=== PATIENT | male | born 2000 | race Two or more races ===

== ENCOUNTER 2020-07-27 21:15 | Emergency (ER) | payer OTHER ==
[2020-07-27] MEDS ORDERED: IBUPROFEN 600 MG TABLET PO ONE (22:05)
[2020-07-27 22:45] LABS: A TYPE INFLUENZA AG NEGATIVE (NEGATIVE); B INFLUENZA AG NEGATIVE (NEGATIVE)
--- NOTE | 2020-07-27 22:45 | ER Document Report ---
ED ENT - General Chief Complaint: Sore Throat Stated Complaint: SLIGHT SORE THROAT, WEAKNESS, FATIQUE Time Seen by Provider: 07/27/20 22:04 Mode of Arrival: Ambulatory Information source: Patient Notes: 20-year-old male with no previous medical problems presents to the emergency room complaining of generalized fatigue, headache, and sore throat for the past 2 days. States he started with a fever today of 100.8. Has been taking Tylenol with some relief. States he did not take any Tylenol today. Describes the headache as generalized and aching. Denies any history of migraines. Denies any head trauma head injury. Denies any sudden thunderclap. Denies worst headache of his life. He denies any nausea, vomiting, no abdominal pain, no diarrhea, no COVID-19 exposure. Known ill contacts. States is eating and drinking but is painful to swallow. TRAVEL OUTSIDE OF THE [place] IN LAST 30 DAYS: No - Related Data Allergies/Adverse Reactions: No Known Allergies Allergy (Verified 07/27/20 22:19) Past Medical History - General Information source: Patient - Social History Smoking Status: Never Smoker Frequency of alcohol use: Occasional Drug Abuse: None Family History: Reviewed & Not Pertinent Patient has homicidal ideation: No Review of Systems - Review of Systems Constitutional: Fever, Malaise EENT: Throat pain Cardiovascular: No symptoms reported Respiratory: No symptoms reported Gastrointestinal: No symptoms reported Musculoskeletal: No symptoms reported Skin: No symptoms reported Neurological/Psychological: Headaches -: Yes All other systems reviewed and negative Physical Exam - Vital signs Vitals: Temp Pulse Resp BP Pulse Ox 99.9 F 115 H 20 133/81 H 98 07/27/20 21:25 07/27/20 21:25 07/27/20 21:25 07/27/20 21:25 07/27/20 21:25 - General General appearance: Appears well, Alert In distress: Mild - HEENT Head: Normocephalic, Atraumatic Eyes: Normal Pupils: PERRL External canal: Normal Tympanic membrane: Normal Sinus: Normal Nasal: Normal Pharynx: Normal Neck: Normal. No: Kernig's, Lymphadenopathy, Meningismus - Respiratory Respiratory status: No respiratory distress Chest status: Nontender Breath sounds: Normal Chest palpation: Normal - Cardiovascular Rhythm: Tachycardia Heart sounds: Normal auscultation Murmur: No - Extremities General upper extremity: Normal inspection, Nontender, Normal color, Normal ROM, Normal temperature General lower extremity: Normal inspection, Nontender, Normal color, Normal ROM, Normal temperature, Normal weight bearing. No: Ramez's sign - Neurological Neuro grossly intact: Yes Cognition: Normal Orientation: AAOx4 [place] Coma Scale Eye Opening: Spontaneous [place] Coma Scale Verbal: Oriented [place] Coma Scale Motor: Obeys Commands [place] Coma Scale Total: 15 Speech: Normal Motor strength normal: LUE, RUE, LLE, RLE Sensory: Normal - Skin Skin Temperature: Warm Skin Moisture: Dry Skin Color: Normal Course - Re-evaluation Re-evalutation: 07/27/20 22:48 Patient is resting comfortably with decreased pain. States his headache has resolved. Vital signs are stable. Reviewed negative flu and negative strep with patient. Aware that if throat culture comes back with any bacteria that needs to be treated he will be notified. He was counseled to push fluids, continue with Tylenol and or Motrin as needed for fevers and pain. Outpatient follow-up primary care physician if not improving in 2 to 3 days. Patient was given strict return to the emergency room guidelines. Return for any new or worsening symptoms. All questions were answered. Patient verbalized understanding and agrees with plan of care. 07/27/20 22:52 - Vital Signs Vital signs: Temp Pulse Resp BP Pulse Ox 99.9 F 115 H 20 133/81 H 98 07/27/20 21:25 07/27/20 21:25 07/27/20 21:25 07/27/20 21:25 07/27/20 21:25 Discharge - Discharge Clinical Impression: Viral illness Headache Qualifiers: Headache type: other headache syndrome Qualified Code(s): G44.89 - Other headache syndrome Acute pharyngitis Qualifiers: Pharyngitis/tonsillitis etiology: unspecified etiology Qualified Code(s): J02.9 - Acute pharyngitis, unspecified Fever Qualifiers: Fever type: unspecified Qualified Code(s): R50.9 - Fever, unspecified Condition: Stable Disposition: HOME, SELF-CARE Instructions: Fever ([facility]), Sore Throat ([facility]), Viral Syndrome ([facility]) Additional Instructions: Rest, push fluids, take Tylenol and or Motrin as needed for fevers and pain. Recheck with primary care physician in 2 days if not improving. Return to the emergency room for any new or worsening symptoms. Forms: Return to Work Referrals: [facility] [Provider Group] - Follow up as needed
[2020-07-27 22:58] VITALS: BP 129/76
== END 2020-07-27 22:58 | disposition home or self-care (01) ==
LOC: ER 21:15
DX: B34.9 Viral infection, unspecified (principal); J02.9 Acute pharyngitis, unspecified; R53.83 Other fatigue; R51.9 Headache, unspecified; R50.9 Fever, unspecified; R53.81 Other malaise
CPT/HCPCS: 87070; 87804; 87880; 99282